=== PATIENT | female | born 1970 | race Caucasian/White ===

== ENCOUNTER 2019-06-08 06:44 | Day surgery (SDC) | payer OTHER ==
[~2019-06-08] VITALS: Ht 170.2 cm; Wt 93.3 kg
[~2019-06-08 06:44] MED LIST: Synthroid50 MCG PO; VENL25 PO
--- NOTE | 2019-06-08 07:19 | NUR ---
06/08/19 0719 Shanita Tan 1 IV MISS IN RH BY KIRSTEN 1 GOOD IV IN RW BY KIRSTEN PT TOW
== END 2019-06-08 08:54 | disposition home or self-care (01) ==
LOC: ORSCSDS 06:44
PROVIDERS: Surgery
PROC: 0DBM8ZX Excision of Descending Colon, Via Natural or Artificial Opening Endoscopic, Diagnostic (ICD-10-PCS; principal; 2019-06-08 08:00)
DX: Z12.11 Encounter for screening for malignant neoplasm of colon (principal); D12.4 Benign neoplasm of descending colon; I10 Essential (primary) hypertension; F41.8 Other specified anxiety disorders; Z79.899 Other long term (current) drug therapy
CPT/HCPCS: 88305; J0461; J2405; J2704; J7120